=== PATIENT | female | born 1950 | race Caucasian/White ===

== ENCOUNTER 2021-09-22 13:57 | Outpatient (CLI) | payer MEDICARE, OTHER | END 2021-09-22 13:58 | disposition home or self-care (01) | LOC: CSHMAMMO 13:57 | PROVIDERS: ATTEND Internal Medicine | DX: Z12.31 Encounter for screening mammogram for malignant neoplasm of breast (principal); Z80.3 Family history of malignant neoplasm of breast | CPT/HCPCS: 77063; 77067 ==

== ENCOUNTER 2022-11-16 15:21 | Outpatient (CLI) | payer MEDICARE, OTHER | END 2022-11-16 15:22 | disposition home or self-care (01) | LOC: CSHMAMMO 15:21 | PROVIDERS: ATTEND Internal Medicine | DX: Z12.31 Encounter for screening mammogram for malignant neoplasm of breast (principal); Z80.3 Family history of malignant neoplasm of breast | CPT/HCPCS: 77063; 77067 ==